=== PATIENT | female | born 1970 | race Caucasian/White ===

== ENCOUNTER → 2016-07-27 | Outpatient (CLI) | payer BC | LOC: COL.LAB 12:23 | DX: Z01.89 Encounter for other specified special examinations (principal) ==

== ENCOUNTER → 2016-08-10 | Outpatient (CLI) | payer BC | LOC: COL.RAD 13:35 | DX: M50.221 Other cervical disc displacement at C4-C5 level (principal) ==

== ENCOUNTER → 2016-10-01 | Outpatient (CLI) | payer BC | LOC: MHCPAIN 09:16 | DX: G89.29 Other chronic pain (principal); M54.12 Radiculopathy, cervical region; M47.812 Spondylosis without myelopathy or radiculopathy, cervical region; M96.1 Postlaminectomy syndrome, not elsewhere classified | CPT/HCPCS: G0463 ==

== ENCOUNTER → 2016-10-06 | Outpatient (CLI) | payer BC | LOC: COL.RAD 13:30 | DX: S43.491A Other sprain of right shoulder joint, initial encounter (principal); M19.011 Primary osteoarthritis, right shoulder; M19.012 Primary osteoarthritis, left shoulder; M75.82 Other shoulder lesions, left shoulder; M25.812 Other specified joint disorders, left shoulder | CPT/HCPCS: A9585; Q9967 ==

== ENCOUNTER → 2016-10-07 | Outpatient (CLI) | payer BC | LOC: MHCPAIN | DX: M47.814 Spondylosis without myelopathy or radiculopathy, thoracic region (principal); M50.323 Other cervical disc degeneration at C6-C7 level | CPT/HCPCS: J1100; Q9967 ==

== ENCOUNTER → 2016-11-08 | Outpatient (CLI) | payer BC | LOC: MHCPAIN 08:15 | DX: G89.29 Other chronic pain (principal); M50.90 Cervical disc disorder, unspecified, unspecified cervical region; M54.12 Radiculopathy, cervical region; M96.1 Postlaminectomy syndrome, not elsewhere classified | CPT/HCPCS: G0463 ==

== ENCOUNTER → 2016-12-06 | Outpatient (CLI) | payer BC | LOC: MC.RAD 07:40 | DX: Z12.31 Encounter for screening mammogram for malignant neoplasm of breast (principal); N64.89 Other specified disorders of breast ==

== ENCOUNTER → 2016-12-09 | Outpatient (CLI) | payer BC | LOC: MC.RAD 10:20 | DX: N64.89 Other specified disorders of breast (principal) ==

== ENCOUNTER → 2017-03-15 | Outpatient (CLI) | payer BC | LOC: COL.RAD 07:55 | DX: K21.9 Gastro-esophageal reflux disease without esophagitis (principal); J34.89 Other specified disorders of nose and nasal sinuses | CPT/HCPCS: A9541 ==

== ENCOUNTER → 2018-01-16 | Outpatient (CLI) | payer BC | LOC: MC.RAD 12-13 14:40 | DX: Z12.31 Encounter for screening mammogram for malignant neoplasm of breast (principal); N63.10 Unspecified lump in the right breast, unspecified quadrant ==

== ENCOUNTER → 2018-01-19 | Outpatient (CLI) | payer BC | LOC: MC.RAD 08:15 | DX: N60.01 Solitary cyst of right breast (principal) ==

== ENCOUNTER → 2018-05-22 | Outpatient (CLI) | payer BC | LOC: MHCPAIN 07:58 | DX: G89.29 Other chronic pain (principal); M54.12 Radiculopathy, cervical region; M47.812 Spondylosis without myelopathy or radiculopathy, cervical region | CPT/HCPCS: G0463 ==

== ENCOUNTER → 2019-01-19 | Outpatient (CLI) | payer BC | LOC: MC.RAD 08:03 | DX: Z12.31 Encounter for screening mammogram for malignant neoplasm of breast (principal) ==

== ENCOUNTER → 2019-03-13 | Outpatient (CLI) | payer BC | LOC: MHCPAIN 15:31 | DX: G89.29 Other chronic pain (principal); M54.12 Radiculopathy, cervical region; R51 Headache; M47.812 Spondylosis without myelopathy or radiculopathy, cervical region | CPT/HCPCS: G0463 ==

== ENCOUNTER → 2019-03-21 | Outpatient (CLI) | payer BC | LOC: COL.RAD 09:16 | DX: M25.512 Pain in left shoulder (principal); Z96.612 Presence of left artificial shoulder joint | CPT/HCPCS: J3301; Q9967 ==

== ENCOUNTER 2019-06-18 11:56 | Emergency (ER) | payer BC ==
[~2019-06-18] VITALS: Ht 162.6 cm; Wt 64.5 kg
[2019-06-18 12:10] VITALS: TEMP 98.8
[2019-06-18 13:37] VITALS: BP 125/76; PULSE 63
== END 2019-06-18 13:38 | disposition home or self-care (01) ==
LOC: COL.ER 11:56
DX: S20.212A Contusion of left front wall of thorax, initial encounter (principal); V87.7XXA Person injured in collision between other specified motor vehicles (traffic), initial encounter

== ENCOUNTER → 2020-03-18 | Outpatient (CLI) | payer BC | LOC: MC.RAD 07:42 | DX: Z12.31 Encounter for screening mammogram for malignant neoplasm of breast (principal) ==

== ENCOUNTER → 2021-04-13 | Outpatient (CLI) | payer BC | LOC: MC.RAD 08:30 | DX: Z12.31 Encounter for screening mammogram for malignant neoplasm of breast (principal) ==

== ENCOUNTER → 2023-01-31 | Outpatient (CLI) | payer BC | LOC: COL.RAD 08:34 | DX: I65.23 Occlusion and stenosis of bilateral carotid arteries (principal); I77.9 Disorder of arteries and arterioles, unspecified ==

== ENCOUNTER → 2023-06-14 | Outpatient (CLI) | payer BC | LOC: MC.RAD 10:26 | DX: Z12.31 Encounter for screening mammogram for malignant neoplasm of breast (principal); N64.89 Other specified disorders of breast ==

== ENCOUNTER → 2023-06-17 | Outpatient (CLI) | payer BC | LOC: MC.RAD 13:57 | DX: N60.02 Solitary cyst of left breast (principal) ==